=== PATIENT | female | born 1925 | race African-American/Black ===

== ENCOUNTER 2016-08-25 21:08 | Inpatient (IN) | payer OTHER, BC ==
[~2016-08-25] VITALS: Ht 162.6 cm; Wt 98.4 kg
--- NOTE | ~2016-08-25 | EKG ---
[address] [address] ELECTROCARDIOGRAM REPORT Name: QUINCY JAVIER Room #: [facility] Lopez#: [id number] Admission: 08/25/16 Attend Phys: Discharge: Date of : [birth year] Report #: [id number] THIS REPORT FOR: //name// [facility] ED Test Date: 2016-08-25 Test Time: 21:20:43 Pat Name: QUINCY JAVIER Department: Room: Gender: F [employer] Clerk: IVORY : 1925 Requested By: Michel Burleson Order Number: [id number] MD: Abraham Leong Measurements Intervals [place] Rate: 58 P: 37 ND: 171 QRS: -44 QRSD: 129 T: 43 QT: 469 QTc: 461 Interpretive Statements Sinus rhythm Left bundle branch block Compared to ECG 08/07/2015 19:05:16 Left bundle-branch block now present Atrial premature complex(es) no longer present Intraventricular conduction delay no longer present Left ventricular hypertrophy no longer present T-wave abnormality no longer present Electronically Signed On 08-25-2016 22:34:15 CDT by Abraham Leong [email or web address] <ELECTRONICALLY SIGNED> By: Abraham Leong MD 08/25/164 19 19 Abraham Leong MD /EPI
[~2016-08-25 21:08] MED LIST: ACETAMINOPHEN325 M1 PO; ADVAIR 250-501 EACH INH; ALLOPURINOL 10100 M1 PO; ALPRAZOLAM ER1 MG PO; ALPRAZOLAM1 M1 PO; AVELOX 400 MG400 MG PO; BIOTIN1 M1 PO; CALCIUM STOOL240 MG PO; CENTRUM SILVER1 EAC4 PO; CHLORTHALIDONE25 MG; CHLORTHALIDONE50 MG PO; CIPRO500 MG PO; CLONIDINE HCL0.3 M2 PO; CLONIDINE HCL0.3 M3 PO; CLONIDINE0.1; COLACE 100 MG100 MG PO; COLACE100 MG PO; COUMADIN 2.5MG2.5 M1 PO; COUMADIN 3 MG TA3 MG PO; DICLOFENAC SODI75 M1 PO; ENSURE237 ML PO; FLAGYL500 MG PO; FUROSEMIDE 20 M20 M1; GARLIC OIL1 EAC1 PO; HALOPERIDOL 2 MG2 M1 PO; HCTZ PO; HYDROCHLOROTH12.5 MG; KLOR-CON 10 ER10 MEQ PO; KLOR-CON 1010 MEQ; KLOR-CON 1010 MEQ PO; LACTINEX CHEWA1 EACH PO; LASIX 40 MG TAB40 M1 PO; LEXAPRO 10 MG T10 M1 PO; LISINOPRIL40 MG; LOPRESSOR 12.12.5 MG PO; MAGOX 400400 MG PO; METAMUCIL FIBE1 EACH PO; METAMUCIL POWD288 GM PO; METAMUCIL0.52 GM PO; METAMUCIL197.2 GM PO; METAMUCIL283 GM; METOPROLOL SUCC25 M1 PO; MIRAPEX0.125 MG PO; MULTIVITAMINS PO; MYLANTA 12 OZ355 M1 PO; PREDNISONE 5 MG5 M1 PO; PRILOSEC20 MG PO; RESTORIL15 MG PO; RESTORIL30 MG PO; SENNA CONCENTR8.6 MG PO; TEMAZEPAM; TESSALON PERLE100 MG PO; TOPROL XL25 MG; TOPROL XL25 MG PO; TRAMADOL 50 MG50 MG PO; TYLENOL325 MG PO; ULTRACET TABLE1 EACH PO; XANAX 0.5 MG0.5 MG PO; XARELTO10 M1 PO; XARELTO20 MG PO; ZANTAC 7575 MG PO; ZOCOR 20 MG TAB20 M1 PO; ZOCOR20 MG PO; ZOLOFT 50 MG TA50 M1 PO; ZPAK PO
[2016-08-25 21:09] VITALS: BP 200/90
[2016-08-25 22:04] LABS: ABSOLUTE NEUTROPHILS 6.9 thou/uL (1.4-8.2); BASOPHILS 0.5 % (0.0-2.0); HEMATOCRIT 35.6 % (37.0-47.0); HEMOGLOBIN 11.9 gm/dL (12.0-15.0); LYMPHOCYTES 22.2 % (24.0-44.0); MCH 27.7 pg (26.0-34.0); MCHC 33.5 g/dL (28.0-37.0); MCV 82.5 fL (80.0-100.0); PLATELET COUNT 310 thou/uL (150-400); POLYS 70.3 % (36.0-66.0); RBC 4.31 mil/uL (4.20-5.00); RDW 19.9 % (10.5-14.5); WBC 9.9 thou/uL (4.0-11.0)
[2016-08-25 22:09] LABS: MANUAL DIFF NO
[2016-08-25 22:14] LABS: CALCIUM 9.5 mg/dL (8.5-10.1); CREATININE 1.3 mg/dL (0.6-1.0); POTASSIUM 4.5 mmol/L (3.5-5.1)
[2016-08-25 22:18] LABS: APTT 36.6 Seconds (24.5-32.8); INR 1.3; PROTIME 13.7 Seconds (9.3-11.4)
[2016-08-25 22:20] LABS: ALBUMIN 2.6 g/dL (3.4-5.0); TOTAL BILIRUBIN 0.3 mg/dL (<0.1-1.0); TOTAL PROTEIN 6.5 g/dL (6.4-8.2)
[2016-08-25] MEDS ORDERED: SYMBICORT160 MCG/4. INH (22:43)
[2016-08-25] MEDS ORDERED: ZOCOR20 MG PO (22:45)
[2016-08-25 23:13] VITALS: BP 198/116
[2016-08-26] VITALS: BP 142/112
[2016-08-26 04:00] VITALS: BP 80/50
[2016-08-26 04:23] VITALS: BP 101/57
[2016-08-26 08:33] VITALS: BP 105/58
[2016-08-26 17:00] VITALS: BP 108/58
[2016-08-26 20:17] VITALS: BP 116/72
[2016-08-27] VITALS (9 sets, daily range): BP systolic 106–152; BP diastolic 67–108
[2016-08-27 22:34] LABS: URINE BILIRUBIN 1+ (Negative); URINE BLOOD 3+ (Negative); URINE COLOR RED; URINE GLUCOSE-RANDOM* NEGATIVE (Negative); URINE KETONES TRACE (Negative); URINE LEUKOCYTES-REFLEX 2+ (Negative); URINE PROTEIN (DIPSTICK) 3+ (Negative)
[2016-08-27 22:39] LABS: ICTOTEST (BILI CONFIRMATORY) Negative (Negative)
[2016-08-27 22:43] LABS: CASTS None Seen /LPF (None Seen); CRYSTALS None Seen /LPF (None Seen); SQUAMOUS 0-3 Few /LPF (0-3); URINE RBC >20 Many /HPF (0-2)
[2016-08-27 22:44] LABS: URINE WBC-REFLEX 6-15 Few /HPF (0-5)
[2016-08-28] VITALS: BP 119/60
[2016-08-28 04:00] VITALS: BP 107/77
[2016-08-28 05:42] LABS: HEMATOCRIT 28.5 % (37.0-47.0); MCH 27.1 pg (26.0-34.0); MCHC 32.3 g/dL (28.0-37.0); MCV 83.9 fL (80.0-100.0); RBC 3.4 mil/uL (4.20-5.00); RDW 19.4 % (10.5-14.5); WBC 16.4 thou/uL (4.0-11.0)
[2016-08-28 05:54] LABS: HEMOGLOBIN 9.2 gm/dL (12.0-15.0)
[2016-08-28 15:45] VITALS: BP 133/74
[2016-08-28 19:20] VITALS: BP 89/62
[2016-08-29 04:24] VITALS: BP 133/83
[2016-08-29 05:31] LABS: HEMATOCRIT 24.8 % (37.0-47.0); HEMOGLOBIN 8.4 gm/dL (12.0-15.0); MCH 27.9 pg (26.0-34.0); MCHC 34.1 g/dL (28.0-37.0); RBC 3.02 mil/uL (4.20-5.00); RDW 19.3 % (10.5-14.5)
[2016-08-29 07:37] VITALS: BP 109/78
[2016-08-29 13:14] LABS: POTASSIUM 4.9 mmol/L (3.5-5.1)
[2016-08-29 13:15] LABS: CALCIUM 9.6 mg/dL (8.5-10.1); CREATININE 1.5 mg/dL (0.6-1.0)
[2016-08-29 15:13] VITALS: BP 119/68
[2016-08-29 19:55] VITALS: BP 135/80
[2016-08-30 03:31] VITALS: BP 118/78
[2016-08-30 04:42] VITALS: BP 133/65
[2016-08-30 06:08] LABS: BASOPHILS 0.3 % (0.0-2.0); HEMOGLOBIN 7.8 gm/dL (12.0-15.0); LYMPHOCYTES 10.6 % (24.0-44.0); MCH 27.4 pg (26.0-34.0); MCHC 33.8 g/dL (28.0-37.0); MONOCYTES 2.9 % (1.0-8.0); PLATELET COUNT 265 thou/uL (150-400); POLYS 86.2 % (36.0-66.0); RBC 2.84 mil/uL (4.20-5.00); RDW 19.1 % (10.5-14.5); WBC 12.7 thou/uL (4.0-11.0)
[2016-08-30 06:11] LABS: MANUAL DIFF NO
[2016-08-30 06:17] LABS: CALCIUM 9.2 mg/dL (8.5-10.1); CREATININE 1.3 mg/dL (0.6-1.0); MAGNESIUM 2.1 mg/dL (1.8-2.4)
[2016-08-30 07:28] VITALS: BP 111/62
[2016-08-30] MEDS ORDERED: HYDROCODONE-APA1 TA1 PO (13:03)
[2016-08-30] MEDS ORDERED: COLACE 100 MG100 MG PO (13:04)
[2016-08-30 16:07] VITALS: BP 104/56
== END 2016-08-30 17:50 | DRG 480 ==
LOC: ER 21:08 → EROBS 22:34 → 5S 22:34
PROVIDERS: Emergency Medicine; Hospitalist; Nurse Practitioner; Nurse Practitioner Family; Orthopaedic Surgery
PROC: 0QSB04Z Reposition Right Lower Femur with Internal Fixation Device, Open Approach (ICD-10-PCS; principal; 2016-08-27)
DX: S72.401A Unspecified fracture of lower end of right femur, initial encounter for closed fracture (principal); E43 Unspecified severe protein-calorie malnutrition; D62 Acute posthemorrhagic anemia; I10 Essential (primary) hypertension; I48.0 Paroxysmal atrial fibrillation; K21.9 Gastro-esophageal reflux disease without esophagitis; E78.5 Hyperlipidemia, unspecified; M10.9 Gout, unspecified; F41.9 Anxiety disorder, unspecified; M81.0 Age-related osteoporosis without current pathological fracture; J44.9 Chronic obstructive pulmonary disease, unspecified; Z66 Do not resuscitate; N28.9 Disorder of kidney and ureter, unspecified; D72.829 Elevated white blood cell count, unspecified; F32.9 Major depressive disorder, single episode, unspecified; Z88.8 Allergy status to other drugs, medicaments and biological substances; Z87.891 Personal history of nicotine dependence; Z86.718 Personal history of other venous thrombosis and embolism; Z86.711 Personal history of pulmonary embolism; Z93.3 Colostomy status; Z79.899 Other long term (current) drug therapy; Z88.6 Allergy status to analgesic agent; Z68.37 Body mass index [BMI] 37.0-37.9, adult; Z90.49 Acquired absence of other specified parts of digestive tract; W18.39XA Other fall on same level, initial encounter; Y93.89 Activity, other specified; Y92.89 Other specified places as the place of occurrence of the external cause; Y99.8 Other external cause status
CPT/HCPCS: 10086; 50010; 50101; 50382; 50415; 50455; 55430; 56525; 56527; 62110; 62900; 70005